=== PATIENT | male | born 2000 | race Caucasian/White ===

== ENCOUNTER 2020-07-21 17:39 | Emergency (ER) | payer BC ==
[2020-07-21 17:45] VITALS: BP 144/73; PULSE 86; RESP 18; TEMP 97.8
--- NOTE | 2020-07-21 18:29 | ED ---
General Adult HPI - General Chief complaint: Urogenital Stated complaint: Abdominal/groin pain Time Seen by Provider: 07/21/20 17:51 Source: patient, RN notes reviewed, old records reviewed Mode of arrival: ambulatory Limitations: no limitations - History of Present Illness Initial comments: 20 yo male presenting for evaluation of left testicular pain. Patient states he's hadleft-sided pain for the past 3 days. He denies specific injury but states he has been doing some weightlifting. He states the pain is constant although does become more severe at times. He did state that he felt that his testicle was in an abnormal position at one time. No dysuria or hematuria. No vomiting. No fever. - Related Data Allergies Allergy/AdvReac Type Severity Reaction Status Date / Time No Known Allergies Allergy Verified 07/21/20 17:45 Review of Systems ROS Statement: Those systems with pertinent positive or pertinent negative responses have been documented in the HPI. ROS Other: All systems not noted in ROS Statement are negative. Past Medical History Past Medical History: Asthma, Pneumonia History of Any Multi-Drug Resistant Organisms: None Reported Past Surgical History: No Surgical Hx Reported Past Psychological History: No Psychological Hx Reported Smoking Status: Current some day smoker Past Alcohol Use History: Occasional Past Drug Use History: None Reported General Exam Limitations: no limitations General appearance: alert, in no apparent distress Head exam: Present: atraumatic, normocephalic Eye exam: Present: normal appearance, PERRL ENT exam: Present: normal exam Neck exam: Present: normal inspection Respiratory exam: Present: normal lung sounds bilaterally. Absent: respiratory distress, wheezes Cardiovascular Exam: Present: regular rate, normal rhythm GI/Abdominal exam: Present: soft. Absent: distended, tenderness, guarding exam: Present: normal inspection, vertical testicular lie, other (cremasteric reflex is present, normal testicular lie). Absent: testicular tenderness, urethral discharge Extremities exam: Present: normal inspection Neurological exam: Present: alert, oriented X3, CN II-XII intact. Absent: motor sensory deficit Psychiatric exam: Present: normal affect, normal mood Skin exam: Present: warm, dry, intact. Absent: cyanosis, diaphoretic Course Vital Signs 07/21/20 17:42 Temperature 97.8 F Pulse Rate 86 Respiratory 18 Rate Blood Pressure 144/73 O2 Sat by Pulse 98 Oximetry Medical Decision Making - Medical Decision Making US performed to rule out testicular torsion, there is normal blood flow to both testicles, no signs of torsion, no other acute findings. I did discuss case with Dr. De La Fuente covering for urology, will see the patient on an outpatient basis for evaluation of testicular pain. - Lab Data Lab Results 07/21/20 Range/Units 19:06 Urine Color Light Yellow Urine Appearance Clear (Clear) Urine pH 7.0 (5.0-8.0) Ur Specific Holcomb 1.007 (1.001-1.035) Urine Protein Negative (Negative) Urine Glucose (UA) Negative (Negative) Urine Ketones Negative (Negative) Urine Blood Negative (Negative) Urine Nitrite Negative (Negative) Urine Bilirubin Negative (Negative) Urine Urobilinogen <2.0 (<2.0) mg/dL Ur Leukocyte Esterase Negative (Negative) Disposition Clinical Impression: Testicular pain Disposition: HOME SELF-CARE Condition: Good Instructions (If sedation given, give patient instructions): Testicle Pain (ED) Is patient prescribed a controlled substance at d/c from ED?: No Referrals: David Berry DO [Primary Care Provider] - 1-2 days Ismael De La Fuente MD [STAFF PHYSICIAN] - 1-2 days Time of Disposition: 19:12
--- NOTE | 2020-07-21 18:59 | US ---
EXAMINATION TYPE: US scrotum with doppler. Grayscale and color Doppler Duplex imaging performed of leidy sawyer scrotum. DATE OF EXAM: 07/21/2020 COMPARISON: NONE CLINICAL HISTORY: testicular pain. Pain EXAM MEASUREMENTS: TESTICLES: Right Testicle: 4.5 x 2.8 x 3.7 cm Left Testicle: 4.6 x 2.6 x 3.5 cm EPIDIDYMIS HEAD: Right Epididymis: .6 x 1.4 x .7 cm Left Epididymis: Not well visualized. Doppler performed to assess for testicular vascularity; good bilateral color flow and waveforms are s een. There is no evidence of testicular torsion. Presence of hydroceles: No Presence of varicoceles: No Testicular echotexture is symmetrical and homogenous. IMPRESSION: 1. No suspicious changes to suggest torsion
[2020-07-21 19:31] LABS: Appearance,Urine Clear (Clear); Bilirubin,Urine Negative (Negative); Blood,Urine Negative (Negative); Color,Urine Light Yellow; Glucose,Urine (UA) Negative (Negative); Ketones,Urine Negative (Negative); Leukocyte Esterase,Urine Negative (Negative); Nitrite,Urine Negative (Negative); Protein,Urine Negative (Negative); Specific Gravity,Urine 1.007 (1.001-1.035); Urobilinogen,Urine <2.0 mg/dL (<2.0)
== END 2020-07-21 19:40 | disposition home or self-care (01) ==
LOC: EC 17:39
DX: N50.812 Left testicular pain (principal); F17.200 Nicotine dependence, unspecified, uncomplicated; X50.0XXA Overexertion from strenuous movement or load, initial encounter
CPT/HCPCS: 76870; 81003; 93975; 99284